=== PATIENT | male | born 2000 | race Caucasian/White ===

== ENCOUNTER 2024-09-01 19:06 | Emergency (ER) | payer BC, SELFPAY ==
--- OUTSIDE RECORDS SUMMARY | 2024-09-01 19:13 | XMS_ITS | Clinical Summary ---
Author Organization [address] Address [address] [place] [id number] Care Team Providers Care Ict Trainer Name Role Phone Flaco Soto MD Primary Care Provider [phone] Allergies No known active allergies Medications loratadine (CLARITIN) 10 mg tablet Take 1 tablet (10 mg total) by mouth daily Active fluticasone propionate (FLONASE) 50 mcg/actuation nasal spray Administer 1 spray into each nostril daily Active montelukast (SINGULAIR) 10 mg tabletIndications :Seasonal Allergic Rhinitis Take 1 tablet (10 mg total) by mouth nightly 30 tablet 2 03/10/20 23 Active lisdexamfetamine (VYVANSE) 20 mg capsuleIndication s:Attention-Defic it Hyperactivity Disorder Take 1 capsule (20 mg total) by mouth every morning 30 capsule 08/18/19 25 Active lisdexamfetamine (VYVANSE) 20 mg capsuleIndication s:Attention-Defic it Hyperactivity Disorder Take 1 capsule (20 mg total) by mouth every morning 30 capsule 07/12/19 25 025 Discontin ued(Reord er) Active Problems Problem Noted Date Diagnosed Date Attention deficit hyperactiv ity disorder (ADHD), predominantly inattentive type 12/14/2023 Encounter for medical examination to establish c are 03/10/2023 Assessment & Plan (03/10/2023 2:21 PM MANAGER EXPORT): A(n) initial well visit to establish care has been performed today. Javi Anand is not up to date on screening tests. He is in need of Cholesterol screening. He is not up to date on needed preventative vaccinations; He is in need of Influenza, HPV, Meningococcal, and Covid-19 (booster). We discussed healthy lifestyle habits, educational material has been given. Medications reviewed, changes documented as per the medical record and discussed with patient along with risks vs benefits. Return in 1 year Immunizations Immunization Administration Dates Next Due DTaP 01/14/2007, 4,2002,2002, 2002 H1N1 Inj 03/23/2009,02/23/2009 Hep B / HiB 01/13/2003,2002,2002 IPV 01/14/2007,07/11/2003,2002 ,2002 Influenza, Unspecified 03/23/2024(Deferr ed: Patient Refused),03/10/2023(Deferred: Patient Refused),12/02/2022(Deferred: Patient Refused),05/04/2022(Deferred: Patient Refused),02/25/2007 MMR 05/12/2003 MMRV 01/14/2007 Meningococcal MCV4P (Menactra) 06/29/2019,2013 Pneumococcal Conjugate 7-Valent 01/13/2003,07/21,2002,2002 Tdap 01/13/2014,01/03/2014 Varicella 05/12/2003 Medical History Medical History Date Comments ADHD (attention deficit hyperactivity disorder), combined type 2019 Family History Medical History Relation Name Comments No Known Problems Brother No Known Problems Father No Known Problems Maternal Grandfather No Known Problems Maternal Grandmother No Known Problems Mother Obesity Paternal Grandfather No Known Problems Paternal Grandmother No Known Problems Sister 1 No Known Problems Sister 2 Relation Name Status Comments Brother Alive Father Alive Maternal Grandfather Alive Maternal Grandmother Alive Mother Alive Paternal Grandfather Paternal Grandmother Alive Sister 1 Alive Sister 2 Alive Social History Tobacco Use Types Packs/Day Years Used Date Smoking Tobacco: Never Cigarettes Smokeless Tobacco: Never Tobacco Cessation:Counseling Given: Not Answered AUDIT-C Answer Date Recorded Q1: How often do you have a drink containing alc ohol? 2-4 times a month 04/22/2023 Q2: How many drinks containi ng alcohol do you have on a typical day when you are drinking? 1 or 2 04/22/2023 Q3: How often do you have si x or more drinks on one occasion? 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 Not on file Not on file Obstetrics History Last Filed Vital Signs Vital Sign Reading Time Taken Comments Blood Pressure 110/70 03/23/2024 8:44 AM MANAGER EXPORT Pulse 75 03/23/2024 8:44 AM MANAGER EXPORT Temperature 36.4 C (97.5 F) 03/23/2024 8:44 AM MANAGER EXPORT Respiratory Rate 16 03/23/2024 8:44 AM MANAGER EXPORT Oxygen Saturation 98% 03/23/2024 8:44 AM MANAGER EXPORT Inhaled Oxygen Concentration - - Weight 75.8 kg (167 lb) 03/23/2024 8:44 AM MANAGER EXPORT Height 182.9 cm (6') 03/23/2024 8:44 AM MANAGER EXPORT Body Mass Index 22.65 03/23/2024 8:44 AM MANAGER EXPORT Plan of Treatment Health Maintenance Due Date Last Done Comments Hepatitis C Screening 2002 HPV Vaccines (1 - Male 3-dos e series) 2017 Meningococcal B Vaccine (1 o f 2 - Standard) 2018 DTaP/Tdap/Td Vaccine (8 - Td or Tdap) 01/14/2024 01/13/2014, 01/03/2014, 01/14/2007, Additional history exists Influenza Vaccine (Season Ended) 2025 02/26/20 07 Depression Screening 03/23/2025 03/23/2024, 11/06/2023, 04/22/2023, Additional history exists Regular Well Visit/Exam 18-64 03/23/2025 03/23/2024, 03/10/2023 Hepatitis B Screening Completed 01/13/2003 , 2002, 2002 Pneumococcal vaccine <65 Completed 003, 2002, 2002, Additional history exists Varicella Vaccines Completed 01/14/2007, 05/12/2003 Covid-19 Vaccine Discontinued 02/06/2021, 01/08/2021 Insurance ANTHEM ACCESS CHOICE ANTHEM ACCESS CHOICE Care Teams Ict Trainer Relationship Specialty Start Date End Date Flaco Soto MD [address] [address] PCP - General Family Medicine 03/13/23
--- OUTSIDE RECORDS SUMMARY | 2024-09-01 19:13 | XMS_ITS | Referral Summary ---
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 Not on file Not on file Last Filed Vital Signs Vital Sign Reading Time Taken Comments Blood Pressure 110/70 03/23/2024 8:44 AM BENEFITS MANAGER Pulse 75 03/23/2024 8:44 AM BENEFITS MANAGER Temperature 36.4 C (97.5 F) 03/23/2024 8:44 AM BENEFITS MANAGER Respiratory Rate 16 03/23/2024 8:44 AM BENEFITS MANAGER Oxygen Saturation 98% 03/23/2024 8:44 AM BENEFITS MANAGER Inhaled Oxygen Concentration - - Weight 75.8 kg (167 lb) 03/23/2024 8:44 AM BENEFITS MANAGER Height 182.9 cm (6') 03/23/2024 8:44 AM BENEFITS MANAGER Body Mass Index 22.65 03/23/2024 8:44 AM BENEFITS MANAGER Plan of Treatment Not on file Insurance [employer] CHOICE [employer] ACCESS CHOICE Care Teams Fermenting Cellars Receiver Relationship Specialty Start Date End Date Flaco Soto MD [address] [facility] [address] [place] [address] PCP - General Family Medicine 03/13/23
[2024-09-01 19:16] VITALS: BP 136/80; PULSE 84; RESP 18; TEMP 37; O2SAT 98
--- NOTE | 2024-09-01 19:29 | ED_ITS ---
HPI - URI/Sore Throat General Chief Complaint: Upper Respiratory Infection Stated Complaint: Sore throat Time Seen by Provider: 09/01/24 19:30 Source: patient Mode of arrival: ambulatory Limitations: no limitations History of Present Illness HPI Narrative: Patient c/o right sided sore throat starting this morning and worsening throughout the day. Family saw white drainage on the right tonsil. No fever or chills. MD elicited complaint: sore throat Pertinent past history: seasonal allergies Onset (ago): hour(s) (16) Consistency: constant and progressively worsening Severity: moderate Pain scale (0-10): 6 Able to tolerate fluids by mouth: Yes Exacerbating factors: swallowing Relieving factors: nothing Associated symptoms: sore throat Treatments prior to arrival: none Related Data Home Medications ?Medication ?Instructions ?Recorded ?Confirmed ?Last Taken ?Type lisdexamfetamine 20 mg capsule mg 09/01/24 Unknown History Allergies Allergy/AdvReac Type Severity Reaction Status Date / Time No Known Allergies Allergy Verified 09/01/24 19:17 Review of Systems Review of Systems: All systems reviewed & are unremarkable except as noted in HPI and below Exam Narrative: GENERAL: Well-appearing, well-nourished, and in no acute distress. HEAD: Normocephalic, atraumatic. ENT:? Mucous membranes moist. Mild right anterior cervical lymphadenopathy, midline uvula, no erythema or drainage noted. 2 divots on right tonsil that appear to have previously held tonsil stones that are no longer present. CHEST: Clear to auscultation.? No respiratory distress. HEART: Regular rate and rhythm. ? Normal peripheral pulses. SKIN: Warm dry normal color NEURO: Alert and oriented x3. PSYCH: Normal mood and affect Course Course Level of Care: Express Care Visit Vital Signs Vital signs: Vital Signs Temperature 37.0 C 09/01/24 19:16 Pulse Rate 84 09/01/24 19:16 Respiratory Rate 18 09/01/24 19:16 Blood Pressure 136/80 09/01/24 19:16 Pulse Oximetry 98 09/01/24 19:16 Oxygen Delivery Room Air 09/01/24 19:16 Temperature 37.0 C 09/01/24 19:16 Pulse Rate 84 09/01/24 19:16 Respiratory Rate 18 09/01/24 19:16 Blood Pressure 136/80 09/01/24 19:16 Pulse Oximetry 98 09/01/24 19:16 Oxygen Delivery Room Air 09/01/24 19:16 MDM - URI/Sore Throat MDM Narrative Medical decision making narrative: Strep test negative, will send for culture. No major swelling noted. Right tonsil with 2 divots that may have previously held tonsil stones which would account for white noted on tonsils by family that is not present on my exam (after strep swab completed.) Patient started on steroids and symptomatic care discussed. Differential Diagnosis Differential diagnosis: Likely upper respiratory infection, sinusitis, viral infection, pharyngitis and other (strep throat) Lab Data Labs: Lab Results 09/01/24 Range/Units 19:36 POC Grp A Strep Screen Negative (Negative) Discharge Plan Discharge Clinical Impression: Pharyngitis Patient Disposition: Home Condition: Stable Instructions: Antibiotic Form, Pharyngitis (ED) Additional Instructions: Negative Strep test, no antibiotics at this time. We will give steroids today and a prescription for steroids for swelling/pain. May consider a daily allergy pill like Claritin/Zyrtec, Flonase nose spray for stuffy or runny nose if they develop. May take Tylenol/ibuprofen as well for pain if needed. Gargle with warm salt water, use hard candies/cough drops as needed. Warm drinks and honey also help sore throat. No major swelling noted on exam today but 2 divots in the right tonsil look like they may have had tonsil stones in them, maybe the strep test knocked them free... Patient Language: Uzbek Prescriptions: New methylprednisolone [Medrol (Klaus)] 4 mg tablets,dose pack See Rx Instructions .ROUTE .COMPLEX Qty: 21 0RF Rx Instructions: orally per package directions No Action lisdexamfetamine 20 mg capsule Follow-up/Referrals: Brittany,Flaco Bee MD [Primary Care Provider] - Time of Disposition: 19:42
[2024-09-01 19:38] LABS: EDSTREPNEGPOS1 Negative (Negative)
[2024-09-01] MEDS: predniSONE 20 MG TABLET 60 MG PO (19:39)
== END 2024-09-01 19:45 | disposition home or self-care (01) ==
PROVIDERS: Emergency Provider Nurse Practitioner; PCP Family Medicine
DX: J02.9 Acute pharyngitis, unspecified (principal)
CPT/HCPCS: 87081; 87880; 99203; G0463; J7512